=== PATIENT | female | born 1965 | race Caucasian/White ===

== ENCOUNTER → 2017-02-22 | Outpatient (CLI) | payer OTHER ==
[~2017-02-22] MED LIST: ALBU90OI INH; ASCO500 PO; BECL40OI INH; BLOOD PRESSURE MED?; CRUTCH4 USE; DIAZ5 PO; DOCU100 PO; DULO60; DULO60 PO; FLUO.1OPSU BOTHEYES; GABA300 PO; HYDACE5 PO; HYDMOR2 PO; Imitrex50 MG PO; LOSA50 PO; MAGOXI400 PO; MULVITA; NAPR500; NAPR550 PO; OXYACE5T PO; PANT40 PO; PRED20 PO; PROM25 PO; SERT25; [UNRECOGNIZED DRUG - REMARK]; [UNRECOGNIZED DRUG - REMARK]
== END | disposition home or self-care (01) ==
LOC: LAB EV 14:31
DX: M31.6 Other giant cell arteritis (principal)
CPT/HCPCS: 85651

== ENCOUNTER → 2023-01-03 | Outpatient (CLI) | payer OTHER ==
[~2023-01-03] MED LIST changes: +MAGNESIUM OXID500 MG PO; +MECL25 PO; +ONDA4ODT MM; +TRANSDERM-SCOP1 EAC3 TOP
== END ==
LOC: LAB SHORT 14:16 → LAB 14:16
DX: N39.0 Urinary tract infection, site not specified (principal)
CPT/HCPCS: 87086

== ENCOUNTER 2023-01-18 10:12 | Day surgery (SDC) | payer OTHER ==
[~2023-01-18] VITALS: Ht 167.6 cm; Wt 97.0 kg
[2023-01-18] VITALS (11 sets, daily range): BP systolic 100–138; BP diastolic 62–88
[~2023-01-18 10:12] MED LIST changes: +Aspir 8181 MG PO
[2023-01-18] MEDS ORDERED: ALBU90OI INH (10:47)
[2023-01-18] MEDS ORDERED: LORA10ER PO (10:48)
[2023-01-18] MEDS ORDERED: ATEN50 PO (10:48)
[2023-01-18] MEDS ORDERED: Flonase 0.05% N16 GM (10:49)
[2023-01-18] MEDS ORDERED: HYDCHL25 PO (10:50)
== END 2023-01-18 15:30 | disposition home or self-care (01) ==
LOC: MHTC 10:12
DX: I25.10 Atherosclerotic heart disease of native coronary artery without angina pectoris (principal); R07.89 Other chest pain; I10 Essential (primary) hypertension; E78.5 Hyperlipidemia, unspecified; G47.33 Obstructive sleep apnea (adult) (pediatric); E66.9 Obesity, unspecified; Z88.0 Allergy status to penicillin; Z79.82 Long term (current) use of aspirin; Z79.899 Other long term (current) drug therapy
CPT/HCPCS: 76937; 93458; 99152; 99153; C1769; C1887; C1894; J1644; J2250; J3010; J7030; J7050; Q9967

== ENCOUNTER 2023-05-05 08:12 | Day surgery (SDC) | payer OTHER ==
[~2023-05-05] VITALS: Ht 167.6 cm; Wt 98.9 kg
[~2023-05-05 08:12] MED LIST changes: +ATEN50 PO; +Flonase 0.05% N16 GM; +HYDCHL25 PO; +LORA10ER PO; +Lactated Ringer's 1,000 ML IV ONE; +Ropivacaine 0.5% HCl/Pf 5 MG/ML 20ML VIAL ONE
[2023-05-05] MEDS ORDERED: ROSUVASTATIN CA40 MG PO (08:39)
[2023-05-05] MEDS ORDERED: NITROGLYCERIN0.4 M3 (08:40)
[2023-05-05] MEDS ORDERED: Clindamycin 900mg in D5W 50ML 50 ML IV ONE (08:44)
[2023-05-05] MEDS ORDERED: propofoL 20 ML IV ONE (08:57)
[2023-05-05] MEDS ORDERED: FentaNYL Citrate 50 MCG/ML 2 ML Injection ONE (08:57)
[2023-05-05] MEDS ORDERED: Lactated Ringer's 1,000 ML IV ONE (08:58)
[2023-05-05] MEDS ORDERED: EPINEPhrine HCl 1 MG/ML 1ML Amp XX ONE ×2 (09:09)
[2023-05-05] MEDS ORDERED: Dexamethasone Sod Phos 10 MG/ML 1ML VIAL ONE (09:10)
--- NOTE | 2023-05-05 09:16 | NUR ---
05/05/23 0916 Mabel Hays ROPIVACAINE 0.5% 20MLS MIXED AND VERIFIED W/ EPI 0.1MG (1MG/ML) TO MAKE ROPIVACAINE 0.5% W/ EPI 1:200,000
[2023-05-05] MEDS ORDERED: Ondansetron HCl 2 MG / ML 2ML Vial ONE (09:17)
[2023-05-05 09:51] VITALS: BP 123/70
[2023-05-05] MEDS ORDERED: HYDROcodone 5-APAP 325 TAB ONE (10:27)
== END 2023-05-05 10:45 | disposition home or self-care (01) ==
LOC: ORSCSDS 08:12
PROVIDERS: Podiatrist Foot & Ankle Surgery
PROC: 0J8R3ZZ Division of Left Foot Subcutaneous Tissue and Fascia, Percutaneous Approach (ICD-10-PCS; principal; 2023-05-05 09:15)
DX: M72.2 Plantar fascial fibromatosis (principal); I10 Essential (primary) hypertension; G47.33 Obstructive sleep apnea (adult) (pediatric); M79.7 Fibromyalgia; R42 Dizziness and giddiness; E66.01 Morbid (severe) obesity due to excess calories; Z68.35 Body mass index [BMI] 35.0-35.9, adult; Z79.82 Long term (current) use of aspirin; Z79.899 Other long term (current) drug therapy
CPT/HCPCS: A9270; J0171; J1100; J2405; J2704; J2795; J3010; J7120

== ENCOUNTER → 2023-07-25 | Outpatient (CLI) | payer OTHER ==
[~2023-07-25] MED LIST changes: -Lactated Ringer's 1,000 ML IV ONE; +NITROGLYCERIN0.4 M3; +ROSUVASTATIN CA40 MG PO; -Ropivacaine 0.5% HCl/Pf 5 MG/ML 20ML VIAL ONE
== END | disposition home or self-care (01) ==
LOC: LAB 17:19 → LAB SHORT 17:19
DX: R82.81 Pyuria (principal)
CPT/HCPCS: 87086